=== PATIENT | female | born 1995 | race Caucasian/White ===

== ENCOUNTER 2017-03-25 03:28 | Emergency (ER) | payer OTHER ==
[2017-03-25 05:42] LABS: Basophils % (Auto) 0.3 % (0.0-1.8); Eosinophils # (Auto) 0.1 K/mm3 (0.0-0.4); Eosinophils % (Auto) 0.9 % (0.0-4.3); Hematocrit 40.2 % (30.3-42.9); Hemoglobin 13.4 gm/dl (10.1-14.3); Lymphocytes # (Auto) 1.3 K/mm3 (1.2-5.4); Mean Corpuscular HGB Conc 33 % (30-34); Mean Corpuscular Hemoglobin 31 pg (28-32); Mean Corpuscular Volume 94 fl (79-97); Monocytes # (Auto) 0.5 K/mm3 (0.0-0.8); Monocytes % (Auto) 4.9 % (0.0-7.3); Platelet Count 181 K/mm3 (140-440); Red Blood Count 4.29 M/mm3 (3.65-5.03); Red Cell Distribution Width 13.4 % (13.2-15.2)
[2017-03-25 06:10] LABS: Alanine Aminotransferase 68 units/L (7-56); Albumin 4.3 g/dL (3.9-5); BUN/Creatinine Ratio 16; Blood Urea Nitrogen 8 mg/dL (7-17); Calcium 9.1 mg/dL (8.4-10.2); Hemolysis Index 5
[2017-03-25 08:34] LABS: Bacteria,Urine 1+ /HPF (Negative); Bilirubin,Urine NEG (Negative); Blood,Urine MOD (Negative); Color,Urine Straw (Yellow); Nitrite,Urine NEG (Negative); Protein,Urine <15 mg/dL mg/dL (Negative); Urobilinogen,Urine < 2.0 mg/dL (<2.0)
[2017-03-25] MEDS ORDERED: ZOFRAN ODT PO ONE (10:44)
[2017-03-25] MEDS ORDERED: NORCO 5/325 PO ONE (10:45)
[2017-03-25 10:59] LABS: Lipase 65 units/L (13-60)
--- NOTE | 2017-03-25 10:59 | Emergency Department Report ---
ED Abdominal Pain HPI - General Chief Complaint: Abdominal Pain Stated Complaint: ABD PAIN Time Seen by Provider: 03/25/17 10:03 Source: patient Mode of arrival: Ambulatory Limitations: No Limitations - History of Present Illness Initial Comments: 21-year-old female past medical history presents with complaint of abrupt right-sided upper quadrant pain which started overnight. Some associated nausea. Patient denies fevers or chills denies dysuria or hematuria or increased urinary frequency. Patient is awake alert and oriented 3 nontoxic appearing. Speaks [place] which I speak fluently. MD Complaint: abdominal pain -: month(s), During the night Location: RUQ, R flank Radiation: RUQ, R flank Migration to: RUQ, R flank Severity: moderate Severity scale (0 -10): 5 Quality: aching - Related Data Previous Rx's Medication Instructions Recorded Last Taken Type Acetaminophen/Codeine [Tylenol 1 tab PO Q6H PRN #10 tab 03/25/17 Unknown Rx /Codeine # 3 tab] Nitrofurantoin [place]/M-Cryst 100 mg PO Q12HR #14 capsule 03/25/17 Unknown Rx [Macrobid CAP] Ondansetron [Zofran Odt] 4 mg PO Q8HR PRN #12 tab.rapdis 03/25/17 Unknown Rx Allergies Allergy/AdvReac Type Severity Reaction Status Date / Time No Known Allergies Allergy Unverified 03/25/17 05:18 ED Review of Systems ROS: Stated complaint: ABD PAIN Other details as noted in HPI Constitutional: denies: chills, fever Eyes: denies: eye pain, eye discharge, vision change ENT: denies: ear pain, throat pain Respiratory: denies: cough, shortness of breath, wheezing Cardiovascular: denies: chest pain, palpitations Endocrine: no symptoms reported Gastrointestinal: abdominal pain. denies: nausea, diarrhea Genitourinary: denies: urgency, dysuria, discharge Musculoskeletal: denies: back pain, joint swelling, arthralgia Skin: denies: rash, lesions Neurological: denies: headache, weakness, paresthesias Psychiatric: denies: anxiety, depression Hematological/Lymphatic: denies: easy bleeding, easy bruising ED Past Medical Hx - Past Medical History Previous Medical History?: No - Surgical History Past Surgical History?: No - Social History Smoking Status: Never Smoker Substance Use Type: None - Medications Home Medications: Home Medications Medication Instructions Recorded Confirmed Last Taken Type Acetaminophen/Codeine [Tylenol 1 tab PO Q6H PRN #10 tab 03/25/17 Unknown Rx /Codeine # 3 tab] Nitrofurantoin [place]/M-Cryst 100 mg PO Q12HR #14 capsule 03/25/17 Unknown Rx [Macrobid CAP] Ondansetron [Zofran Odt] 4 mg PO Q8HR PRN #12 tab.rapdis 03/25/17 Unknown Rx ED Physical Exam - General Limitations: No Limitations General appearance: alert, in no apparent distress - Head Head exam: Present: atraumatic, normocephalic - Eye Eye exam: Present: normal appearance, PERRL, EOMI - ENT ENT exam: Present: mucous membranes moist - Neck Neck exam: Present: normal inspection - Respiratory Respiratory exam: Present: normal lung sounds bilaterally. Absent: respiratory distress - Cardiovascular Cardiovascular Exam: Present: regular rate, normal rhythm. Absent: systolic murmur, diastolic murmur, rubs, gallop - GI/Abdominal GI/Abdominal exam: Present: tenderness (patient has some right upper quadrant tenderness on deep palpation), normal bowel sounds - Extremities Exam Extremities exam: Present: normal inspection - Back Exam Back exam: Present: normal inspection - Neurological Exam Neurological exam: Present: alert, oriented X3, CN II-XII intact, normal gait - Psychiatric Psychiatric exam: Present: normal affect, normal mood - Skin Skin exam: Present: warm, dry, intact, normal color. Absent: rash ED Course Vital Signs 03/25/17 03/25/17 03:40 05:13 Temperature 98.2 F 98.2 F Pulse Rate 76 80 Respiratory 16 16 Rate Blood Pressure 114/69 114/69 O2 Sat by Pulse 99 99 Oximetry ED Medical Decision Making - Lab Data Result diagrams: 03/25/17 05:30 03/25/17 05:30 - Medical Decision Making A/P: Abdominal pain, biliary colic, UTI 1-case discussed with Dr. Zuñiga before discharge 2-patient tolerating by mouth without difficulty, vital signs stable for discharge 3-empiric coverage with Macrobid, Zofran, short course tylenol #3 4- follow-up with general surgery. I educated patient on signs and symptoms of biliary colic. I advised her to return to the ED for any inability to tolerate by mouth fevers chills with worsened abdominal pain. Patient stated she understood my instructions. Critical care attestation.: If time is entered above; I have spent that time in minutes in the direct care of this critically ill patient, excluding procedure time. ED Disposition Clinical Impression: Biliary colic Abdominal pain Qualifiers: Abdominal location: right upper quadrant Qualified Code(s): R10.11 - Right upper quadrant pain Disposition: TO HOME OR SELFCARE Is pt being admited?: No Does the pt Need Aspirin: No Condition: Stable Instructions: Abdominal Pain (ED), Biliary Colic (ED) Prescriptions: Acetaminophen/Codeine [Tylenol /Codeine # 3 tab] 1 tab PO Q6H PRN #10 tab PRN Reason: Pain Nitrofurantoin [place]/M-Cryst [Macrobid CAP] 100 mg PO Q12HR #14 capsule Ondansetron [Zofran Odt] 4 mg PO Q8HR PRN #12 tab.rapdis PRN Reason: Nausea Referrals: [facility] [Outside] - 3-5 Days [facility] [Outside] - 3-5 Days SABAS SERRANO DO [Staff Physician] - 3-5 Days [facility] [Provider Group] - 3-5 Days Forms: Accompanied Note, Work/School Release Form(ED) Time of Disposition: 16:09 Print Language: [place]
--- NOTE | 2017-03-25 11:27 | Ultrasound Report ---
Ultrasound of the right upper quadrant. History: Right upper quadrant pain. Findings: The abdominal aorta, liver, and right kidney are normal. There are numerous gallstones with associated acoustic shadowing. The wall of gallbladder is not thickened. Common bile duct is normal in caliber. The pancreas is not well-visualized. Impression: Multiple gallstones.
--- NOTE | 2017-03-25 15:43 | Cat Scan Report ---
CT of the abdomen and pelvis without contrast. History: Right-sided renal colic. Findings: The liver, spleen, pancreas, and gallbladder are unremarkable. The kidneys are normal in size with no evidence of mass, hydronephrosis, or renal calculi. No ureteral dilatation or ureteral stones. An IUD is noted. No significant pelvic findings are seen. Impression: Negative study.
[2017-03-25 16:07] VITALS: BP 104/65
== END 2017-03-25 16:31 | disposition home or self-care (01) ==
LOC: ED 03:28
DX: K80.50 Calculus of bile duct without cholangitis or cholecystitis without obstruction (principal)
CPT/HCPCS: 36415; 74176; 76705; 80053; 81001; 82150; 83690; 84703; 85025; 99284; Q0162